=== PATIENT | female | born 1995 | race Caucasian/White ===

== ENCOUNTER 2019-09-21 17:01 | Emergency (ER) | payer BC ==
[~2019-09-21] VITALS: Ht 154.9 cm; Wt 63.5 kg
[2019-09-21] MEDS ORDERED: SODIUM CHLORIDE 0.9% 1,000 ML IV ONE (17:39)
[2019-09-21] MEDS ORDERED: ONDANSETRON HCL 4MG/2ML INJ IV STA (17:39)
[2019-09-21] MEDS ORDERED: ONDANSETRON HCL 4MG/2ML INJ IV ONE (17:45)
[2019-09-21 18:12] LABS: CLARITY URINE CLEAR (CLEAR); COLOR URINE YELLOW (YELLOW); KETONES URINE NEGATIVE (NEGATIVE); LEUKOCYTE ESTERASE URINE TRACE (NEGATIVE); NITRITE URINE NEGATIVE (NEGATIVE); OCCULT BLOOD URINE NEGATIVE (NEGATIVE); PROTEIN URINE NEGATIVE (NEGATIVE); UROBILINOGEN URINE 0.2 E.U./dL (0.2-1.0)
[2019-09-21 18:15] LABS: BASOPHILS % 0.4 % (0.0-2.0); EOSINOPHILS % 0.5 % (0.0-5.0); HEMATOCRIT. 37.9 % (36.0-48.0); HEMOGLOBIN. 13.3 g/dL (12.0-16.0); LYMPHOCYTES % 17.3 % (20.0-50.0); MEAN CORPUSCULAR VOLUME 91.4 fL (81.0-99.0); NEUTROPHILS % 75.8 % (40.0-76.0); PLATELET 244 x1000/uL (130-400); RED BLOOD CELL COUNT 4.15 mill/uL (4.2-5.4); RED CELL DISTRIBUTION WIDTH 13.8 % (11.6-14.6)
[2019-09-21 18:18] LABS: CHLORIDE 107 mEq/L (98-107)
[2019-09-21 18:43] LABS: B-HCG QUANTITATIVE 38867 mIU/mL (<3)
[2019-09-21 19:38] VITALS: BP 123/76
== END 2019-09-21 19:47 | disposition home or self-care (01) ==
LOC: ER 17:01
DX: O23.11 Infections of bladder in pregnancy, first trimester (principal); O21.9 Vomiting of pregnancy, unspecified; Z3A.13 13 weeks gestation of pregnancy
CPT/HCPCS: 36415; 76801; 80053; 81003; 81025; 84702; 85025; 96374; 99284; J2405; J7030

== ENCOUNTER 2020-04-09 02:40 | Inpatient (IN) | payer BC, MEDICAID ==
[~2020-04-09] VITALS: Ht 154.9 cm; Wt 90.7 kg
[2020-04-09] MEDS ORDERED: PNV1TABL76 PO (03:13)
[2020-04-09] MEDS ORDERED: CARBOPROST TROMETHAMINE 250 MCG/ML AMPUL IM PRN (04:00)
[2020-04-09] MEDS ORDERED: METHYLERGONOVINE MALEATE 0.2 MG/ML IM PRN (04:00)
[2020-04-09] MEDS ORDERED: NALOXONE HCL 0.4 MG/ML 1ML VIAL IM PRN (04:00)
[2020-04-09] MEDS ORDERED: LABETALOL HCL 5MG/ML VIAL 20ML IV PRN ×3 (04:00)
[2020-04-09] MEDS ORDERED: DEXT 5%/LR + PITOCIN 20UNITS/L 1,000 ML IV SCH ×2 (04:00→10:30)
[2020-04-09] MEDS ORDERED: LACTATED RINGERS 1,000 ML IV SCH (04:00)
[2020-04-09] MEDS ORDERED: MAGNESIUM 4 G PREMIX 100 ML IV ONE (04:15)
[2020-04-09 05:04] LABS: BASOPHILS % 0.8 % (0.0-2.0); EOSINOPHILS % 0.6 % (0.0-5.0); HEMATOCRIT. 30.5 % (36.0-48.0); LYMPHOCYTES % 23.7 % (20.0-50.0); MEAN CORPUSCULAR HEMOGLOBIN 27.3 pg (28.0-32.0); MEAN CORPUSCULAR VOLUME 83.1 fL (81.0-99.0); MEAN PLATELET VOLUME 10.1 fl (7.4-10.4); MONOCYTES % 8.7 % (2.0-8.0); NEUTROPHILS % 66.2 % (40.0-76.0); PLATELET 130 x1000/uL (130-400); RED BLOOD CELL COUNT 3.68 mill/uL (4.2-5.4); RED CELL DISTRIBUTION WIDTH 15.6 % (11.6-14.6)
[2020-04-09] MEDS: MAGNESIUM 20 G PREMIX (L & D) 500 ML IV SCH ×2 (05:13→22:50)
[2020-04-09 05:17] LABS: CLARITY URINE CLEAR (CLEAR); COLOR URINE YELLOW (YELLOW); KETONES URINE NEGATIVE (NEGATIVE); LEUKOCYTE ESTERASE URINE 2+ (NEGATIVE); NITRITE URINE NEGATIVE (NEGATIVE); OCCULT BLOOD URINE TRACE (NEGATIVE); PROTEIN URINE 3+ (NEGATIVE); UROBILINOGEN URINE 0.2 E.U./dL (0.2-1.0)
[2020-04-09 05:18] LABS: D-DIMER 4.16 mg/L FEU (<0.50); INR 0.9; PARTIAL THROMBOPLASTIN TIME 27.2 sec (23.4-31.0); PROTHROMBIN TIME 9.8 sec (9.6-11.0)
[2020-04-09 05:23] LABS: CHLORIDE 109 mEq/L (98-107)
[2020-04-09 05:28] LABS: CANNABINOID URINE SCREEN NEGATIVE (NEGATIVE); OPIATES URINE SCREEN NEGATIVE (NEGATIVE); PHENCYCLIDINE URINE SCREEN NEGATIVE (NEGATIVE)
[2020-04-09 05:29] LABS: *BARBITURATES SCREEN URINE NEGATIVE (NEGATIVE); *BENZODIAZEPINES SCREEN URINE NEGATIVE (NEGATIVE); *COCAINE SCREEN URINE NEGATIVE (NEGATIVE); METHADONE URINE SCREEN NEGATIVE (NEGATIVE)
[2020-04-09 05:47] LABS: *AMPHETAMINES SCREEN URINE PRESUMTIVE POSITIVE (NEGATIVE)
[2020-04-09 05:48] LABS: HEPATITIS B SURFACE ANTIGEN NEGATIVE
[2020-04-09] MEDS ORDERED: FENTANYL CITRATE/PF 50MCG/ML 2ML VIAL ONE ×2 (09:00→09:51)
[2020-04-09] MEDS ORDERED: MORPHINE SULFATE/PF 1MG/ML 10ML AMP ONE (09:00)
[2020-04-09] MEDS ORDERED: KETAMINE HCL 50 MG/ML 10ML ONE (09:34)
[2020-04-09] MEDS ORDERED: MIDAZOLAM HCL 2 MG/2 ML VIAL ONE (09:43)
[2020-04-09] MEDS ORDERED: SODIUM CHLORIDE 0.9% 10ML VIAL ONE (10:04)
[2020-04-09] MEDS ORDERED: CEFAZOLIN SODIUM 1000MG/VIAL ONE (10:04)
[2020-04-09] MEDS ORDERED: OXYTOCIN 10 UNITS/ML 1ML ONE (10:04)
[2020-04-09] MEDS ORDERED: ONDANSETRON HCL 4MG/2ML INJ ONE (10:05)
[2020-04-09] MEDS ORDERED: PHENYLEPHRINE HCL 10 MG/ML 1ML (IV VIAL) IV ONE (10:05)
[2020-04-09] MEDS ORDERED: IBUPROFEN 400MG TABLET PO PRN (10:30)
[2020-04-09] MEDS ORDERED: RHO(D) IMMUNE GLOBULIN 300 MCG/SYR IM PRN (10:30)
[2020-04-09] MEDS ORDERED: ONDANSETRON HCL 4MG/2ML INJ IV PRN ×2 (10:30→11:00)
[2020-04-09] MEDS ORDERED: KETOROLAC 30MG/ML VIAL IV PRN ×3 (10:30→12:00)
[2020-04-09] MEDS ORDERED: BISACODYL 10MG SUPP PR PRN (10:30)
[2020-04-09] MEDS ORDERED: DIPHENHYDRAMINE 50MG/ML VIAL IV PRN (11:00)
[2020-04-09] MEDS ORDERED: MEPERIDINE HCL/PF 25MG/ML CPJ IV PRN (11:00)
[2020-04-09] MEDS ORDERED: HYDROMORPHONE HCL/PF 2MG/ML CPJ IV PRN (11:00)
[2020-04-09] MEDS ORDERED: LABETALOL 5MG/ML SYR 20 MG/4 ML SYRINGE IV PRN (11:00)
[2020-04-09] MEDS ORDERED: BUTORPHANOL TARTRATE 2 MG/ML VIAL IM PRN (11:00)
[2020-04-09 14:15] VITALS: BP 127/85
[2020-04-09 14:50] VITALS: BP 127/83
[2020-04-09 16:30] VITALS: BP 138/85
[2020-04-09] MEDS ORDERED: INFLUENZA VACCINE 05/PF 0.5 ML VIAL IM ONE (18:45)
[2020-04-09] MEDS ORDERED: TETANUS, DIPHTHERIA, PERTUSSIS VAC/PF 0.5ML (>7YR OLD) IM ONE (18:45)
[2020-04-09 19:45] VITALS: BP 145/97
[2020-04-09 22:45] VITALS: BP 139/92
[2020-04-10 07:39] LABS: BASOPHILS % 0.2 % (0.0-2.0); EOSINOPHILS % 0.1 % (0.0-5.0); HEMATOCRIT. 22.5 % (36.0-48.0); HEMOGLOBIN. 7.3 g/dL (12.0-16.0); LYMPHOCYTES % 9.2 % (20.0-50.0); MEAN CORPUSCULAR HEMOGLOBIN 27.2 pg (28.0-32.0); MEAN CORPUSCULAR VOLUME 83.6 fL (81.0-99.0); MEAN PLATELET VOLUME 10.5 fl (7.4-10.4); MONOCYTES % 4.2 % (2.0-8.0); NEUTROPHILS % 86.3 % (40.0-76.0); PLATELET 134 x1000/uL (130-400); RED BLOOD CELL COUNT 2.69 mill/uL (4.2-5.4); RED CELL DISTRIBUTION WIDTH 16.1 % (11.6-14.6)
[2020-04-10 08:00] VITALS: BP 135/73
[2020-04-10] MEDS: IBUPROFEN 800MG TABLET PO PRN ×2 (08:59→20:24)
[2020-04-10 10:00] VITALS: BP 152/81
[2020-04-10 14:46] VITALS: BP 152/90
[2020-04-10 20:00] VITALS: BP 183/88
[2020-04-10] MEDS: LABETALOL HCL 200MG TABLET PO SCH (21:32)
[2020-04-11] VITALS: BP 139/84
[2020-04-11 04:00] VITALS: BP 153/95
[2020-04-11] MEDS: LABETALOL HCL 200MG TABLET PO SCH ×2 (07:53→21:02)
[2020-04-11] MEDS: IBUPROFEN 800MG TABLET PO PRN ×2 (07:54→16:12)
[2020-04-11 08:00] VITALS: BP 151/90
[2020-04-11 19:30] VITALS: BP 139/87
[2020-04-12] MEDS ORDERED: LABE200T28 PO (01:58)
[2020-04-12] MEDS ORDERED: IBUP-2030 PO (01:58)
[2020-04-12 05:00] VITALS: BP 139/87
[2020-04-12 05:10] VITALS: BP 151/93
[2020-04-12 08:00] VITALS: BP 146/97
[2020-04-12] MEDS: IBUPROFEN 800MG TABLET PO PRN (09:20)
[2020-04-12] MEDS: LABETALOL HCL 200MG TABLET PO SCH (09:20)
[2020-04-13 13:07] LABS: AMPHETAMINE CONF URINE Positive (.)
== END 2020-04-12 13:10 | disposition home or self-care (01) | DRG 540 ==
LOC: OBSVTOIN 02:40 → 8 EST LDRP 02:40 → 8EST 14:15
PROVIDERS: ADMIT Obstetrics & Gynecology; ATTEND Obstetrics & Gynecology
PROC: 10D00Z1 Extraction of Products of Conception, Low, Open Approach (ICD-10-PCS; principal; 2020-04-09)
PROC: 3E02340 Introduction of Influenza Vaccine into Muscle, Percutaneous Approach (ICD-10-PCS; 2020-04-09)
DX: O13.4 Gestational [pregnancy-induced] hypertension without significant proteinuria, complicating childbirth (principal); O99.324 Drug use complicating childbirth; O99.214 Obesity complicating childbirth; O36.63X0 Maternal care for excessive fetal growth, third trimester, not applicable or unspecified; O77.0 Labor and delivery complicated by meconium in amniotic fluid; O34.211 Maternal care for low transverse scar from previous cesarean delivery; E66.01 Morbid (severe) obesity due to excess calories; O14.14 Severe pre-eclampsia complicating childbirth; O48.0 Post-term pregnancy; F19.10 Other psychoactive substance abuse, uncomplicated; Z37.0 Single live birth; Z3A.42 42 weeks gestation of pregnancy; Z82.49 Family history of ischemic heart disease and other diseases of the circulatory system; Z83.3 Family history of diabetes mellitus; Z23 Encounter for immunization; Z20.822 Contact with and (suspected) exposure to COVID-19
CPT/HCPCS: 36415; 80053; 80305; 80307; 81003; 83735; 84550; 85025; 85379; 85384; 86592; 86703; 86762; 86850; 86900; 86920; 87340; 87426; 88307; 90686; 90715; 99281; J0690; J1885; J2250; J2274; J2370; J2405; J2590; J3010; J3475; J3490; J7120; A4315